=== PATIENT | male | born 1960 | race Caucasian/White ===

== ENCOUNTER 2021-12-04 15:05 | Inpatient (IN) | payer BC, OTHER ==
[~2021-12-04] VITALS: Ht 175.3 cm; Wt 100.0 kg
[2021-12-04 15:37] LABS: BASOPHILS # (AUTO) 0.1 X10'3 (0-0.2); EOSINOPHILS # (AUTO) 0.2 X10'3 (0-0.9); EOSINOPHILS % (AUTO) 2.1 % (0-6); HEMATOCRIT 46.9 % (42.0-52.0); HEMOGLOBIN 16.1 g/dl (14.0-17.9); LYMPHOCYTES # (AUTO) 2.4 X10'3 (1.1-4.8); LYMPHOCYTES % (AUTO) 24.5 % (21-51); MEAN CORPUSCULAR HEMOGLOBIN 30.3 PG (27.0-31.0); MEAN CORPUSCULAR HGB CONC 34.3 g/dL (33.0-36.5); MEAN CORPUSCULAR VOLUME 88.4 FL (78-98); MEAN PLATELET VOLUME 9.2 FL (7.4-10.4); MONOCYTES # (AUTO) 0.8 X10'3 (0-0.9); MONOCYTES % (AUTO) 8.2 % (2-12); NEUTROPHILS # (AUTO) 6.4 X10'3 (1.8-7.7); NEUTROPHILS % (AUTO) 64.2 % (42-75); PLATELET COUNT 290 X10'3 (140-440); RED BLOOD COUNT 5.31 X10'6 (4.70-6.10); RED CELL DISTRIBUTION WIDTH 13.3 % (11.5-14.5)
[2021-12-04 15:52] LABS: ALANINE AMINOTRANSFERASE 103 U/L (12-78); ALBUMIN 4.1 G/DL (3.4-5.0); ALBUMIN/GLOBULIN RATIO 1.1 (1.1-1.5); ALKALINE PHOSPHATASE 92 IU/L (46-116); ANION GAP 15 (8-16); ASPARTATE AMINO TRANSFERASE 31 U/L (10-37); BILIRUBIN,TOTAL 0.3 MG/DL (0.1-1.0); BLOOD UREA NITROGEN 24 MG/DL (7-18); BUN/CREATININE RATIO 19.2 (5.4-32.0); CALCIUM 10.2 MG/DL (8.5-10.1); CHLORIDE 104 MMOL/L (99-107); CREATININE 1.25 MG/DL (0.60-1.10); GLUCOSE 101 MG/DL (70-104); POTASSIUM 4.2 MMOL/L (3.5-5.1); SODIUM 141 MMOL/L (135-145); TOTAL CARBON DIOXIDE 21.8 MMOL/L (24-32); TOTAL PROTEIN 7.9 G/DL (6.4-8.2); eGFR 59 ML/MIN
--- NOTE | 2021-12-04 18:45 | NUR ---
PT MOVED TO FAST TRACK AND CONNECTED TO MONITOR.
--- NOTE | 2021-12-04 18:49 | NUR ---
DR LUO IS TALKING TO PT IN ROOM.
[2021-12-04] MEDS ORDERED: nitroGLYCERIN 0.4mg/hour patch TD ONE (19:10)
[2021-12-04] MEDS ORDERED: aspirin 81mg tab.chew PO ONE (19:10)
[2021-12-04] MEDS ORDERED: acetaminophen 325mg tablet PO PRN ×2 (20:25)
[2021-12-04] MEDS ORDERED: mag hydrox/Alum hydrox/simeth 30ml oral suspension PO PRN (20:25)
[2021-12-04] MEDS ORDERED: ondansetron/PF 4mg/2ml inj IV PRN (20:25)
[2021-12-04] MEDS ORDERED: magnesium hydroxide 30ml (MOM) UD suspension PO PRN (20:25)
[2021-12-04] MEDS ORDERED: HYDROcodone/acetaminophen 5mg/325mg tablet PO PRN (20:25)
[2021-12-04] MEDS ORDERED: nitroGLYCERIN 0.4mg SUBLingual tab SL PRN (20:25)
[2021-12-04] MEDS ORDERED: morphine 2 MG/ML inj. syringe IV PRN ×2 (20:25)
--- NOTE | 2021-12-04 20:34 | NUR ---
pt observed sitting up in bed, vss, sig other at bs, denies needs.
[2021-12-04] MEDS ORDERED: HYDR-3972 PO (22:09)
[2021-12-04] MEDS ORDERED: LOSA1TAB41 PO (22:09)
[2021-12-04 23:45] VITALS: BP 115/79
[2021-12-05] VITALS (12 sets, daily range): BP systolic 107–132; BP diastolic 64–86
[2021-12-05] MEDS ORDERED: HYDROcodone/acetaminophen 10/325mg tab PO PRN (05:25)
[2021-12-05 07:43] LABS: BASOPHILS # (AUTO) 0.1 X10'3 (0-0.2); BASOPHILS % (AUTO) 0.7 % (0-1); EOSINOPHILS # (AUTO) 0.2 X10'3 (0-0.9); EOSINOPHILS % (AUTO) 1.9 % (0-6); HEMATOCRIT 43.8 % (42.0-52.0); HEMOGLOBIN 14.8 g/dl (14.0-17.9); LYMPHOCYTES # (AUTO) 2.3 X10'3 (1.1-4.8); LYMPHOCYTES % (AUTO) 21.2 % (21-51); MEAN CORPUSCULAR HEMOGLOBIN 30.4 PG (27.0-31.0); MEAN CORPUSCULAR HGB CONC 33.7 g/dL (33.0-36.5); MEAN CORPUSCULAR VOLUME 90.1 FL (78-98); MEAN PLATELET VOLUME 9.5 FL (7.4-10.4); MONOCYTES # (AUTO) 0.8 X10'3 (0-0.9); MONOCYTES % (AUTO) 7.4 % (2-12); NEUTROPHILS # (AUTO) 7.4 X10'3 (1.8-7.7); NEUTROPHILS % (AUTO) 68.8 % (42-75); PLATELET COUNT 273 X10'3 (140-440); RED BLOOD COUNT 4.86 X10'6 (4.70-6.10); RED CELL DISTRIBUTION WIDTH 13.9 % (11.5-14.5); WHITE BLOOD COUNT 10.8 X10'3 (4.5-11.0)
[2021-12-05] MEDS ORDERED: HYDROchlorothiazide 12.5mg capsule PO SCH (08:00)
[2021-12-05] MEDS ORDERED: docusate sod 100mg capsule PO SCH (08:00)
[2021-12-05] MEDS ORDERED: losartan 50mg tablet PO SCH (08:00)
[2021-12-05 08:06] LABS: ALBUMIN 3.8 G/DL (3.4-5.0); ANION GAP 11 (8-16); BLOOD UREA NITROGEN 25 MG/DL (7-18); BUN/CREATININE RATIO 23.6 (5.4-32.0); CALCIUM 9.8 MG/DL (8.5-10.1); CHLORIDE 107 MMOL/L (99-107); CHOL/HDL RATIO 4.8 (0.00-4.99); CHOLESTEROL 237 MG/DL (0-200); CREATININE 1.06 MG/DL (0.60-1.10); GLUCOSE 104 MG/DL (70-104); HDL CHOLESTEROL 49 MG/DL (35-60); LDL CHOLESTEROL 165 MG/DL (50-100); POTASSIUM 4.5 MMOL/L (3.5-5.1); SODIUM 145 MMOL/L (135-145); TOTAL CARBON DIOXIDE 26.6 MMOL/L (24-32); TRIGLYCERIDES 93 MG/DL (20-135); eGFR 71 ML/MIN
[2021-12-05 10:40] LABS: URINE AMPHETAMINE SCREEN NEGATIVE (Neg); URINE BARBITUATE SCREEN NEGATIVE (Neg); URINE BENZODIAZEPINES SCREEN NEGATIVE (Neg); URINE CANNABINOID SCREEN NEGATIVE (Neg); URINE COCAINE SCREEN NEGATIVE (Neg); URINE METHADONE SCREEN NEGATIVE (Neg); URINE OPIATE SCREEN POSITIVE (Neg); URINE PHENCYCLIDINE SCREEN NEGATIVE (Neg)
[2021-12-05] MEDS ORDERED: regadenoson 0.4mg/5ml syringe IV PRN (12:00)
[2021-12-05] MEDS ORDERED: metoprolol tartrate 1mg/ml inj IV PRN (12:00)
[2021-12-05] MEDS ORDERED: aminophylline 500mg/20ml vial IV PRN (12:00)
[2021-12-05] MEDS ORDERED: nitroGLYCERIN 0.4mg SUBLingual tab SL PRN (12:00)
[2021-12-05] MEDS ORDERED: LOSA50TA64 PO (17:47)
[2021-12-05] MEDS ORDERED: PRAV10TA39 PO (17:47)
[2021-12-05] MEDS ORDERED: ASPI81TA52 PO (17:48)
--- NOTE | 2021-12-05 18:17 | NUR ---
pt. given discharge instructions without further questions. PIV removed, catheter tip intact. Pt. left unit at 1810.
[2021-12-05] MEDS ORDERED: pravastatin 10mg tablet PO SCH (21:00)
== END 2021-12-05 18:10 | disposition home or self-care (01) | DRG 311 ==
LOC: ER 15:06 → ED HOLD 20:28 → EDBEDREQ 22:09 → MED 3N 22:50
PROVIDERS: ADMIT Internal Medicine; ATTEND Internal Medicine
PROC: 4A02XM4 Measurement of Cardiac Total Activity, External Approach (ICD-10-PCS; principal; 2021-12-05)
PROC: 3E073KZ Introduction of Other Diagnostic Substance into Coronary Artery, Percutaneous Approach (ICD-10-PCS; 2021-12-05)
DX: I20.0 Unstable angina (principal); N18.30 Chronic kidney disease, stage 3 unspecified; I12.9 Hypertensive chronic kidney disease with stage 1 through stage 4 chronic kidney disease, or unspecified chronic kidney disease; E78.5 Hyperlipidemia, unspecified
CPT/HCPCS: 36415; 71046; 78451; 80048; 80053; 80061; 80305; 83880; 84484; 85025; 87081; 93005; 93017; 93306; 99285; A9500; G0378; J2785